=== PATIENT | male | born 1970 | race Caucasian/White ===

== ENCOUNTER 2016-12-04 16:59 | Emergency (ER) | payer BC ==
[~2016-12-04] VITALS: Ht 175.3 cm; Wt 91.5 kg
[2016-12-04 17:30] VITALS: Ht 175.3 cm; Wt 91.5 kg
--- NOTE | 2016-12-04 18:57 | ERD ---
ER Documentation Chief Complaint Date/Time DATE: 12/04/16 TIME: 18:54 Chief Complaint POSSIBLE MOUSE/RAT BITE ON RIGHT THUMB HPI This patient is a pleasant 46-year-old male who today was cleaning out his garage and out of nowhere amounts came out and bit him in the right thumb however he was wearing gloves. He has minimal pain. He said he came because he knows he needs a tetanus shot. Denies any numbness or tingling. Denies fever. Has no other complaints. ROS All systems reviewed and are negative except as per history of present illness. FmHx Family History: No diabetes Physical Exam Vitals Vital Signs Date Time Temp Pulse Resp B/P Pulse Ox O2 Delivery O2 Flow Rate FiO2 12/04/16 17:30 98.6 77 17 156/97 98 Physical Exam General: well developed, well nourished, alert, nontoxic, no distress Head: normocephalic, atraumatic Respiratory: Clear to auscaultation bilaterally, speaks in full sentences, no use of accesory muscles or labored breathing, no rales, ronchi, or wheezing Cardiovascular: RRR, No murmurs Extremities: moving all extremities normally, normal gait, no edema Skin: Right thumb has a small red spot however there is no break in the skin, full range of motion in the thumb Procedures/MDM 46-year-old male presents after being bit in the thumb by a mouse through his glove when he was working in the garage. It did not break the skin. He was given a tetanus vaccination. Low concern for rabies. He was discharged with Augmentin. Recommended this patient follow up with her primary care doctor within 48 hours or return to the emergency room for any worsening of symptoms. However this time I do believe there is suitable for outpatient management. I answered all their questions and they agreed with the plan and were discharged home. Departure Diagnosis: Primary Impression: Bite wound Condition: Stable SUSAN THOMAS PA-C Dec 04, 2016 18:57
[2016-12-04] MEDS ORDERED: AMOX1TAB10 PO (18:58)
[2016-12-04] MEDS ORDERED: DIPHTH/TET/ACEL PERTUSS (ADULT) 0.5 ML VIAL IM* ONE (19:00)
== END 2016-12-04 21:03 | disposition home or self-care (01) ==
LOC: FTE 16:59
DX: S61.051A Open bite of right thumb without damage to nail, initial encounter (principal); W53.01XA Bitten by mouse, initial encounter; Y92.59 Other trade areas as the place of occurrence of the external cause; Z23 Encounter for immunization
CPT/HCPCS: 90471; 90715; Z7502

== ENCOUNTER → 2019-01-06 | Emergency (ER) | payer BC ==
[~2019-01-06] VITALS: Ht 175.3 cm; Wt 94.5 kg
[~2019-01-06] MED LIST: AMOX1TAB10 PO; AZIT250T PO; PRED20TA PO; PROM5SYR2 PO
[2019-01-06 09:51] VITALS: BP 130/77; PULSE 71; RESP 18; Ht 175.3 cm; Wt 94.5 kg
--- NOTE | 2019-01-06 10:19 | ERD ---
ER Documentation Chief Complaint Chief Complaint cough with green phlegm , sore throat x 1 week HPI This is a 48-year-old otherwise healthy male who presents with cough and sore throat that he has had for over 1 week. He is tried multiple wvva-xiz-iathaqu medications including Mucinex, Dimetapp, Tylenol, Motrin, and other home remedies without any relief. He had a fever initially but that has now resolved. No nausea or vomiting or diarrhea. His symptoms are worse at night. ROS All systems reviewed and are negative except as per history of present illness. Medications Home Meds Active Scripts Promethazine HCl/Codeine (Prometh-Codein 6.25-10 mg/5 ml) 5 Ml Syrup, 5 ML PO Q6, #200 ML Prov:SUSAN THOMAS PA-C 01/06/19 Prednisone* (Prednisone*) 20 Mg Tab, 60 MG PO DAILY for 5 Days, TAB Prov:SUSAN THOMAS PA-C 01/06/19 Azithromycin* (Zithromax*) 250 Mg Tablet, 250 MG PO .ZPACK DIRECTED, #6 TAB TAKE 500 MG (2 TABS) THE FIRST DAY THEN 250 MG (1 TAB) DAYS 2-5 Prov:SUSAN THOMAS PA-C 01/06/19 Amoxicillin/Potassium Clav (Amox-Clav 875-125 mg Tablet) 875-125 mg Tab, 1 TAB PO BID for 10 Days, #20 TAB Prov:SUSAN THOMAS PA-C 12/04/16 FmHx Family History: No diabetes Physical Exam Vitals Vital Signs Date Temp Pulse Resp B/P (MAP) Pulse Ox O2 O2 Flow FiO2 Time Delivery Rate 01/06/19 97.1 71 18 130/77 98 09:51 (94) Physical Exam INITIAL VITAL SIGNS: Reviewed by me GENERAL: Awake, alert and oriented x 4, well appearing, nontoxic, speaking in full sentences. No acute distress HEAD: Atraumatic NECK: Supple. No masses. Full range of motion. No meningismus. No midline tenderness. EYES: EOMI. PERRL. EAR: No tenderness over the mastoids bilaterally. No exudates in the canals. TMs nonerythematous. NOSE: Normal nose. THROAT: No tonilar erythema or edema. No exudates. Uvula midline. No kissing tonsils. RESPIRATORY: Clear to auscultation bilaterally. Symmetric chest wall rise. No wheezing or rales. No accessory muscle use. CV: Regular rate and rhythm. No murmurs, rubs, or gallops. Procedures/MDM Is a 48-year-old male who has cough and congestion and sore throat for over a week. He has been trying uwyf-csr-qchorej medications with little relief. Prescription for short course of prednisone as well as cough suppressant given. A otjh-tnr-mwu prescription for azithromycin given. Patient counseled regarding my diagnostic impression and care plan. Prior to discharge all questions answered. Pt agrees with treatment plan and understands strict return precautions. Pt is instructed to follow up with primary care provider within 24- 48 hours. Precautionary instructions provided including instructions to return to the ER if not improving or for any worsening or changing symptoms or concerns. Departure Diagnosis: Primary Impression: Bronchitis Condition: Stable Patient Instructions: Bronchitis, Antiobiotic Treatment (Adult) Additional Instructions: Call your primary care doctor TOMORROW for an appointment during the next 1-2 days.See the doctor sooner or return here if your condition worsens before your appointment time. SUSAN THOMAS PA-C Jan 06, 2019 10:19
== END | disposition home or self-care (01) ==
LOC: FTE 09:47
DX: J40 Bronchitis, not specified as acute or chronic (principal)
CPT/HCPCS: 99283